=== PATIENT | female | born 1955 | race Caucasian/White ===

== ENCOUNTER 2018-02-13 11:51 | Emergency (ER) | payer SELFPAY ==
[2018-02-13 12:00] VITALS: BP 142/64
--- NOTE | 2018-02-13 12:01 | ER Document Report ---
HPI - HPI Patient complains to provider of: Dental pain Pain Level: 4 Context: Patient is a 62-year-old female complaining of pain to tooth #14. Patient had a temporary filling placed about a month ago. Reports she was eating some cereal, [employer], when she felt acute pain to that tooth. No fever or facial swelling Associated Symptoms: None Exacerbated by: Denies Relieved by: Denies Similar symptoms previously: Yes Past Medical History - General Information source: Patient - Social History Smoking Status: Current Every Day Smoker Frequency of alcohol use: None Drug Abuse: None Lives with: Family Family History: Reviewed & Not Pertinent - Medical History Medical History: Negative Vertical Provider Document - CONSTITUTIONAL Agree With Documented VS: Yes Exam Limitations: No Limitations - INFECTION CONTROL TRAVEL OUTSIDE OF THE [place] IN LAST 30 DAYS: No - HEENT HEENT: Atraumatic, PERRLA Mouth Diagram: 1 - pain - NECK Neck: Normal Inspection, Supple - CARDIOVASCULAR Cardiovascular: Regular Rate, Regular Rhythm - NEURO Level of Consciousness: Awake, Alert, Appropriate - DERM Integumentary: Warm, Dry, No Rash Course - Re-evaluation Re-evalutation: 02/13/18 12:11 History and physical are consistent with an uncomplicated dental pain. No sign of dental abscess or deep tissue infection. No signs of Mayo's angina, peritonsillar abscess. No perioral edema or airway compromise. Home care, dental follow-up in ED return precautions were discussed with the patient. Patient is agreeable with plan and stable for discharge - Vital Signs Vital signs: Temp Pulse Resp BP Pulse Ox 98.2 F 66 16 142/64 H 95 02/13/18 11:59 02/13/18 11:59 02/13/18 11:59 02/13/18 11:59 02/13/18 11:59 Discharge - Discharge Clinical Impression: Pain, dental Condition: Stable Disposition: HOME, SELF-CARE Instructions: [facility], Penicillin V K ([facility]), Toothache ([facility]), Ultram ([facility]) Additional Instructions: Take medications as prescribed Recommend [id number] dental wax for comfort Follow-up with dental for further evaluation and treatment Prescriptions: Penicillin V Potassium [Penicillin Vk 500 mg Tablet] 500 mg PO BID #20 tablet Tramadol HCl [Ultram 50 mg Tablet] 50 mg PO ASDIR PRN #20 tablet PRN Reason: Referrals: LOCAL[facility],NO [Primary Care Provider] - Follow up as needed
== END 2018-02-13 12:20 | disposition home or self-care (01) ==
LOC: ER 11:51
DX: K08.9 Disorder of teeth and supporting structures, unspecified (principal); F17.200 Nicotine dependence, unspecified, uncomplicated
CPT/HCPCS: 99282

== ENCOUNTER 2019-04-01 09:26 | Emergency (ER) | payer SELFPAY ==
[2019-04-01] MEDS ORDERED: IBUPROFEN 600 MG TABLET PO ONE (10:43)
[2019-04-01] MEDS ORDERED: ACETAMINOPHEN 325 MG TABLET PO ONE (10:43)
--- NOTE | 2019-04-01 10:47 | ER Document Report ---
HPI - HPI Time Seen by Provider: 04/01/19 09:47 Pain Level: 5 Context: Patient is a 63-year-old female who presents emergency department with a chief complaint of left foot pain. She was in the shower last night and slipped. She states that she has not been able to walk on her left foot. She has not taken any medication to help with the pain. Patient denies any medical history. - ROS Systems Reviewed and Negative: Yes All other systems reviewed and negative - MUSCULOSKELETAL Musculoskeletal: REPORTS: Extremity pain - Left foot - DERM Skin Color: Normal Skin Problems: Bruise - Left foot Past Medical History - Social History Smoking Status: Current Every Day Smoker Chew tobacco use (# tins/day): No Frequency of alcohol use: None Drug Abuse: None Family History: Reviewed & Not Pertinent Patient has suicidal ideation: No Patient has homicidal ideation: No Renal/ Medical History: Denies: Hx Peritoneal Dialysis Vertical Provider Document - CONSTITUTIONAL Agree With Documented VS: Yes Exam Limitations: No Limitations General Appearance: No Apparent Distress - INFECTION CONTROL TRAVEL OUTSIDE OF THE [place] IN LAST 30 DAYS: No - HEENT HEENT: Atraumatic, Normocephalic - NECK Neck: Normal Inspection - RESPIRATORY Respiratory: No Respiratory Distress - CARDIOVASCULAR Cardiovascular: Regular Rate Pulses: Normal: Posterior tibial, Dorsalis pedis - MUSCULOSKELETAL/EXTREMETIES Musculoskeletal/Extremeties: Tender - Left foot at distal second, third, and fourth metatarsals., No Edema, Eccymosis - Left foot - NEURO Level of Consciousness: Awake, Alert, Appropriate Motor/Sensory: No Motor Deficit, No Sensory Deficit - DERM Integumentary: Warm, Dry, No Rash Course - Re-evaluation Re-evalutation: 04/01/19 11:28 Patient has an oblique fracture of the third metatarsal. It is minimally displaced. She will be placed in splint and follow-up with orthopedics. She will also be given crutches. I explained to her that she needs to be nonweightbearing. She is in agreement with this plan. I have put in a account manager relief consult for the patient since she does not have insurance. Follow-up precautions were given. Verbal discharge instructions were given to the patient. They verbalized understanding. They are stable for discharge. - Vital Signs Vital signs: Temp Pulse Resp BP Pulse Ox 98.1 F 78 16 120/72 97 04/01/19 09:36 04/01/19 09:36 04/01/19 09:36 04/01/19 09:36 04/01/19 09:36 Discharge - Discharge Clinical Impression: Fracture of third metatarsal bone of left foot Qualifiers: Encounter type: initial encounter Fracture type: closed Fracture alignment: displaced Qualified Code(s): S92.332A - Displaced fracture of third metatarsal bone, left foot, initial encounter for closed fracture Condition: Stable Disposition: HOME, SELF-CARE Instructions: Use of Crutches ([facility]), Temporary Splint ([facility]) Additional Instructions: You were seen today in the emergency department for left foot pain. You have a fracture in your left foot. You are being placed in a splint. Take Tylenol 1000 mg and ibuprofen 600 mg every 6 hours for your pain. Please make sure you take ibuprofen for swelling. Do not bear weight on that foot. Please follow-up with orthopedics in regards to this visit. If you are unable to make an appointment with our orthopedics due to finances, you can contact [facility]. Referrals: MELONIE VALDEZ MD [ACTIVE PROVISIONAL STAFF] - Follow up in 1 week
--- NOTE | 2019-04-01 11:06 | RADIOLOGY REPORT (SQ) ---
EXAM DESCRIPTION: FOOT LEFT COMPLETE COMPLETED DATE/TIME: 04/01/2019 10:58 am REASON FOR STUDY: bone tenderness COMPARISON: None. NUMBER OF VIEWS: Three views. TECHNIQUE: AP, lateral and oblique radiographic images acquired of the left foot. LIMITATIONS: None. FINDINGS: MINERALIZATION: Normal. BONES: There is an oblique fracture through the mid aspect of the 3rd metatarsal. Distal fragment is displaced laterally 1 to 2 mm. JOINTS: No effusions. SOFT TISSUES: No soft tissue swelling. No foreign body. OTHER: No other significant finding. IMPRESSION: Oblique fracture through the 3rd metatarsal. TECHNICAL DOCUMENTATION: JOB ID: [id number] [employer]- All Rights Reserved Reading location - IP/workstation name: [email or web address]
[2019-04-01 11:40] VITALS: BP 130/70
== END 2019-04-01 11:56 | disposition home or self-care (01) ==
LOC: ER 09:26
DX: S92.332A Displaced fracture of third metatarsal bone, left foot, initial encounter for closed fracture (principal); M79.672 Pain in left foot; W18.2XXA Fall in (into) shower or empty bathtub, initial encounter; F17.200 Nicotine dependence, unspecified, uncomplicated
CPT/HCPCS: 99283